=== PATIENT | male | born 1955 | race Hispanic/Latino ===

== ENCOUNTER → 2017-11-18 | Outpatient (CLI) | payer OTHER ==
[~2017-11-18] MED LIST: CARV12.511 PO; CLOP75TA32 PO; DIGO125T87 PO; FURO40TA5 PO; GEMF600T4 PO; INSLAN SQ; METF-444 PO; POTA20TA12 PO; RAMI2.5C16 PO
== END | disposition home or self-care (01) ==
LOC: SHCH 09:37
PROVIDERS: ATTEND Internal Medicine Cardiovascular Disease
DX: I65.23 Occlusion and stenosis of bilateral carotid arteries (principal)
CPT/HCPCS: 93880

== ENCOUNTER → 2019-01-13 | Outpatient (CLI) | payer OTHER ==
[~2019-01-13] MED LIST changes: +DIGO125T71 PO; -DIGO125T87 PO; -GEMF600T4 PO; +GEMF600T5 PO
== END | disposition home or self-care (01) ==
LOC: SHCH 09:12
PROVIDERS: ATTEND Internal Medicine Cardiovascular Disease
DX: I10 Essential (primary) hypertension (principal); I25.5 Ischemic cardiomyopathy; Z95.810 Presence of automatic (implantable) cardiac defibrillator
CPT/HCPCS: 93306

== ENCOUNTER 2019-05-14 10:23 | Day surgery (SDC) | payer OTHER ==
[2019-05-12 09:59] LABS: BASOPHILS % (AUTO) 0.8 % (0.0-5.0); EOSINOPHILS % (AUTO) 5.4 % (0.0-8.0); LYMPHOCYTES % (AUTO) 15.6 % (21.0-51.0); MEAN CORPUSCULAR HEMOGLOBIN 30.9 pg (27.0-33.0); MEAN CORPUSCULAR HGB CONC 33.4 g/dL (32.0-36.0); MEAN CORPUSCULAR VOLUME 92.4 fL (79-99); MONOCYTES % (AUTO) 8.2 % (3.0-13.0); NEUTROPHILS % (AUTO) 69.6 % (40.0-77.0); PLATELET COUNT (AUTO) 289 K/uL (130-400); RED BLOOD CELL COUNT(AUTO) 4.76 MIL/uL (4.50-6.20); RED CELL DISTRIBUTION WIDTH 12.8 % (11.0-15.5)
[2019-05-12 10:06] LABS: CREATININE 1.1 mg/dL (0.5-1.5); POTASSIUM 4.2 mmol/L (3.5-5.1)
[~2019-05-14] VITALS: Ht 162.6 cm; Wt 68.0 kg
[2019-05-14] VITALS (16 sets, daily range): BP systolic 115–186; BP diastolic 79–111
[~2019-05-14 10:23] MED LIST changes: +CEFAZOLIN SODIUM 1 GM VIAL IVP SCH; +DEXAMETHASONE SOD PHOSPHATE 10MG/ML 1ML VIAL ONE; +FENTANYL CITRATE PF 50 MCG/1 ML 2ML VIAL ONE; +GLYCOPYRROLATE 1 MG/5 ML SYRINGE ONE; +LACTATED RINGERS 1000ML 1,000 ML IV SCH; +LIDOCAINE PF 2% 5ML ABBOJECT ONE; +MIDAZOLAM HCL 1 MG/ML 2ML VIAL ONE; +NEOSTIGMINE 5MG/5ML SYR IV ONE; +ONDANSETRON HCL 4 MG/2 ML VIAL ONE; +PROPOFOL 10 MG/ML 20ML VIAL IV ONE; +ROCURONIUM 10MG/1ML SYR 10 MG/ML ML ONE; +ROPIVACAINE 0.5% 5MG/ML 30ML IJ ONE
[2019-05-14] MEDS ORDERED: SODIUM CHLORIDE 0.9% 1000ML 1,000 ML IV ONE (11:47)
[2019-05-14] MEDS ORDERED: CEFAZOLIN SODIUM 1 GM VIAL ONE (11:55)
[2019-05-14] MEDS ORDERED: GLYCOPYRROLATE 1 MG/5 ML SYRINGE ONE (16:38)
[2019-05-14] MEDS ORDERED: NEOSTIGMINE 5MG/5ML SYR IV ONE (16:38)
[2019-05-14] MEDS ORDERED: HYDRALAZINE HCL 20 MG/ML VIAL ONE (17:24)
--- NOTE | 2019-05-14 18:30 | NUR ---
PT LEFT VIA WHEELCHAIR IN PVT CAR, D/C INSTRUCTIONS GIVEN TO MOTHER ALONG WITH RX SCRIPT. ALSO PT AWARE TO CALL OFFICE ON FRIDAY TO MAKE APPT. IN 2 WEEKS. V/S STABLE NO COMPLICATIONS. NO CRUTCHES GIVEN TO PATIENT D/T PT. HAVING HIS OWN CRUTCHES.
== END 2019-05-14 18:30 | disposition home or self-care (01) ==
LOC: DAH 10:23
PROVIDERS: ATTEND Orthopaedic Surgery
DX: S82.841A Displaced bimalleolar fracture of right lower leg, initial encounter for closed fracture (principal); E11.9 Type 2 diabetes mellitus without complications; I10 Essential (primary) hypertension; I48.91 Unspecified atrial fibrillation; I25.10 Atherosclerotic heart disease of native coronary artery without angina pectoris; E78.5 Hyperlipidemia, unspecified; Z95.5 Presence of coronary angioplasty implant and graft; Z98.890 Other specified postprocedural states; X58.XXXA Exposure to other specified factors, initial encounter; Y93.89 Activity, other specified; Y92.89 Other specified places as the place of occurrence of the external cause; Y99.8 Other external cause status
CPT/HCPCS: 27792; 36415; 71045; 73610; 80048; 82948 ×2; 85025; 93005; A4215; A4221; A4222; A4223; A4649 ×3; A4663; A4930; A6223; C1713 ×4; C1776; J0360; J0690; J1100; J2001; J2250; J2405; J2704; J2710 ×2; J2795; J3010; J3490 ×2; J7030

== ENCOUNTER → 2022-03-29 | Outpatient (CLI) | payer OTHER ==
[~2022-03-29] MED LIST changes: -CEFAZOLIN SODIUM 1 GM VIAL IVP SCH; -DEXAMETHASONE SOD PHOSPHATE 10MG/ML 1ML VIAL ONE; -DIGO125T71 PO; -FENTANYL CITRATE PF 50 MCG/1 ML 2ML VIAL ONE; -GEMF600T5 PO; +GEMF600T89 PO; -GLYCOPYRROLATE 1 MG/5 ML SYRINGE ONE; -LACTATED RINGERS 1000ML 1,000 ML IV SCH; -LIDOCAINE PF 2% 5ML ABBOJECT ONE; -MIDAZOLAM HCL 1 MG/ML 2ML VIAL ONE; -NEOSTIGMINE 5MG/5ML SYR IV ONE; -ONDANSETRON HCL 4 MG/2 ML VIAL ONE; +POTA-193 PO; -POTA20TA12 PO; -PROPOFOL 10 MG/ML 20ML VIAL IV ONE; -RAMI2.5C16 PO; +RAMI2.5C55 PO; +REGADENOSON 0.4 MG/5 ML PF SYG IVP SCH; -ROCURONIUM 10MG/1ML SYR 10 MG/ML ML ONE; -ROPIVACAINE 0.5% 5MG/ML 30ML IJ ONE
== END | disposition home or self-care (01) ==
LOC: SHCH 07:56
PROVIDERS: ATTEND Internal Medicine Cardiovascular Disease
DX: I25.10 Atherosclerotic heart disease of native coronary artery without angina pectoris (principal); I10 Essential (primary) hypertension; E78.5 Hyperlipidemia, unspecified; Z95.5 Presence of coronary angioplasty implant and graft; Z79.02 Long term (current) use of antithrombotics/antiplatelets; Z79.899 Other long term (current) drug therapy
CPT/HCPCS: 78452; 96374; 93017; J2785; A9500 ×2

== ENCOUNTER → 2022-05-23 | Outpatient (CLI) | payer OTHER ==
[~2022-05-23] MED LIST changes: +IOHEXOL 350 MG/ML 100ML INFUS..BTL IV ONE; -REGADENOSON 0.4 MG/5 ML PF SYG IVP SCH
== END | disposition home or self-care (01) ==
LOC: RAH 09:25
PROVIDERS: ATTEND Internal Medicine Cardiovascular Disease
DX: I25.10 Atherosclerotic heart disease of native coronary artery without angina pectoris (principal); I11.9 Hypertensive heart disease without heart failure; M47.815 Spondylosis without myelopathy or radiculopathy, thoracolumbar region; Z95.5 Presence of coronary angioplasty implant and graft
CPT/HCPCS: 75574; Q9967

== ENCOUNTER → 2022-07-18 | Outpatient (CLI) | payer OTHER ==
[~2022-07-18] VITALS: Ht 165.1 cm; Wt 69.6 kg
[~2022-07-18] MED LIST changes: +ATOR40TA69 PO; -IOHEXOL 350 MG/ML 100ML INFUS..BTL IV ONE
[2022-07-18 09:43] LABS: BASOPHILS % (AUTO) 0.6 % (0.0-5.0); EOSINOPHILS % (AUTO) 1.5 % (0.0-8.0); HEMATOCRIT 46.7 % (42-54); LYMPHOCYTES % (AUTO) 15.8 % (21.0-51.0); MEAN CORPUSCULAR HEMOGLOBIN 31.6 pg (27.0-33.0); MEAN CORPUSCULAR HGB CONC 33.8 g/dL (32.0-36.0); MEAN CORPUSCULAR VOLUME 93.4 fL (79-99); MONOCYTES % (AUTO) 14.8 % (3.0-13.0); NEUTROPHILS % (AUTO) 66.8 % (40.0-77.0); PLATELET COUNT (AUTO) 152 K/uL (130-400); RED CELL DISTRIBUTION WIDTH 13.4 % (11.0-15.5); WHITE BLOOD COUNT (AUTO) 6.6 K/uL (4.8-10.8)
[2022-07-18 09:45] VITALS: BP 145/82
[2022-07-18 09:47] LABS: APPEARANCE,URINE CLEAR (CLEAR); BILIRUBIN,URINE NEGATIVE (NEGATIVE); COLOR,URINE LIGHT-YELLOW (YELLOW); GLUCOSE, URINE (UA) >=1000 mg/dL (NEGATIVE); KETONES,URINE 5 mg/dL (NEGATIVE); LEUKOCYTE ESTERASE ,URINE NEGATIVE Leu/uL (NEGATIVE); NITRATE,URINE NEGATIVE (NEGATIVE); OCCULT BLOOD,URINE NEGATIVE (NEGATIVE); PH,URINE 6.5 (5.0-8.0); PROTEIN,URINE NEGATIVE (NEGATIVE)
[2022-07-18 09:52] LABS: CREATININE 0.9 mg/dL (0.5-1.5); POTASSIUM 4.6 mmol/L (3.5-5.1)
[2022-07-18 10:11] LABS: WBC,URINE 0-1 /HPF (0-1)
[2022-07-18 10:30] LABS: B-TYPE NATRIURETIC PEPTIDE 16 pg/mL (0-100)
== END | disposition home or self-care (01) ==
LOC: DAH 10:00 → EDSTATUS 07-22 09:30
PROVIDERS: ATTEND Internal Medicine Cardiovascular Disease
DX: Z01.818 Encounter for other preprocedural examination (principal); I25.10 Atherosclerotic heart disease of native coronary artery without angina pectoris; I70.0 Atherosclerosis of aorta; Z95.0 Presence of cardiac pacemaker
CPT/HCPCS: 36415; 71045; 80048; 81001; 83880; 85025; 93005

== ENCOUNTER 2022-08-09 05:52 | Day surgery (SDC) | payer OTHER ==
[2022-08-07 13:06] LABS: BASOPHILS % (AUTO) 0.8 % (0.0-5.0); EOSINOPHILS % (AUTO) 1.2 % (0.0-8.0); HEMATOCRIT 48.8 % (42-54); LYMPHOCYTES % (AUTO) 16.8 % (21.0-51.0); MEAN CORPUSCULAR HEMOGLOBIN 31.3 pg (27.0-33.0); MEAN CORPUSCULAR HGB CONC 33.8 g/dL (32.0-36.0); MEAN CORPUSCULAR VOLUME 92.6 fL (79-99); MONOCYTES % (AUTO) 12.1 % (3.0-13.0); NEUTROPHILS % (AUTO) 68.8 % (40.0-77.0); PLATELET COUNT (AUTO) 152 K/uL (130-400); RED BLOOD CELL COUNT(AUTO) 5.27 MIL/uL (4.50-6.20); RED CELL DISTRIBUTION WIDTH 13.6 % (11.0-15.5); WHITE BLOOD COUNT (AUTO) 6.6 K/uL (4.8-10.8)
[2022-08-07 13:11] LABS: APPEARANCE,URINE CLEAR (CLEAR); BILIRUBIN,URINE NEGATIVE (NEGATIVE); COLOR,URINE YELLOW (YELLOW); GLUCOSE, URINE (UA) >=1000 mg/dL (NEGATIVE); KETONES,URINE NEGATIVE (NEGATIVE); LEUKOCYTE ESTERASE ,URINE NEGATIVE Leu/uL (NEGATIVE); NITRATE,URINE NEGATIVE (NEGATIVE); OCCULT BLOOD,URINE NEGATIVE (NEGATIVE); PROTEIN,URINE 10 mg/dL (NEGATIVE); UROBILINOGEN,URINE 0.2 mg/dL (0.2-1.0)
[2022-08-07 13:14] LABS: INR 0.97 (0.85-1.15); PROTHROMBIN TIME 10.6 SEC (9.6-11.6)
[2022-08-07 13:15] LABS: PARTIAL THROMBOPLASTIN TIME 27.3 SEC (26.3-35.5)
[2022-08-07 13:19] LABS: POTASSIUM 4.2 mmol/L (3.5-5.1)
[2022-08-07 13:21] LABS: RBC,URINE None Seen /HPF (0-1)
[2022-08-07 13:22] LABS: BACTERIA,URINE None Seen /HPF (None Seen); SQUAMOUS EPITHELIAL CELL,UR Rare /HPF (0-2); WBC,URINE None Seen /HPF (0-1)
[2022-08-07 13:26] LABS: B-TYPE NATRIURETIC PEPTIDE 27 pg/mL (0-100)
[2022-08-07 13:30] VITALS: BP 165/93
[~2022-08-09] VITALS: Ht 165.1 cm; Wt 68.1 kg
[2022-08-09] VITALS (10 sets, daily range): BP systolic 137–164; BP diastolic 67–87
[~2022-08-09 05:52] MED LIST changes: -GEMF600T89 PO; -INSLAN SQ; -METF-444 PO
[2022-08-09] MEDS ORDERED: 0.9%NACL 1000ML 1,000 ML IV ONE (06:15)
[2022-08-09] MEDS ORDERED: LIDOCAINE HCL 400MG/20ML VIAL ONE (07:10)
[2022-08-09] MEDS ORDERED: SODIUM BICARB 50MEQ 50ML VIAL 50 ML ONE (07:10)
[2022-08-09] MEDS ORDERED: HEPARIN 10,000 UNIT/10ML (1,000 UNIT/ML) VIAL ONE (07:11)
[2022-08-09] MEDS ORDERED: IOHEXOL-350 50ML VIAL IV ONE (07:11)
[2022-08-09] MEDS ORDERED: MEPERIDINE-PF 25 MG/ML SYG ONE ×2 (07:11→07:36)
[2022-08-09] MEDS ORDERED: MIDAZOLAM HCL 1 MG/ML 2ML VIAL ONE ×2 (07:11→07:36)
[2022-08-09] MEDS ORDERED: IOHEXOL 350 MG/ML 100ML INFUS..BTL IV ONE (07:11)
[2022-08-09] MEDS ORDERED: NITROGLYCERIN 50MG VIAL ONE (07:12)
[2022-08-09] MEDS ORDERED: NICARDIPINE 25MG INJ IV ONE (07:24)
[2022-08-09] MEDS ORDERED: CLOPIDOGREL 75MG TAB ONE (08:26)
[2022-08-09] MEDS ORDERED: ASPIRIN 81MG CHEW TAB ONE (08:26)
[2022-08-09] MEDS ORDERED: 0.9%NACL 1000ML 1,000 ML IV SCH (08:30)
[2022-08-09] MEDS ORDERED: ONDANSETRON 4MG INJ IVP PRN (08:30)
== END 2022-08-09 12:40 | disposition home or self-care (01) ==
LOC: DAH 05:52
PROVIDERS: ATTEND Internal Medicine Cardiovascular Disease
DX: I25.119 Atherosclerotic heart disease of native coronary artery with unspecified angina pectoris (principal); I25.5 Ischemic cardiomyopathy; I49.3 Ventricular premature depolarization; I11.0 Hypertensive heart disease with heart failure; I50.42 Chronic combined systolic (congestive) and diastolic (congestive) heart failure; I25.2 Old myocardial infarction; E78.5 Hyperlipidemia, unspecified; F17.200 Nicotine dependence, unspecified, uncomplicated; Z98.890 Other specified postprocedural states; Z79.01 Long term (current) use of anticoagulants; Z79.899 Other long term (current) drug therapy; Z90.49 Acquired absence of other specified parts of digestive tract; Z88.6 Allergy status to analgesic agent; Z88.8 Allergy status to other drugs, medicaments and biological substances
CPT/HCPCS: 80048; 83880; 85025; 85610; 85730; 81001; 36415; 93005; 82948 ×2; 93458; C9600; C1769 ×2; C1887; A4649; C1894; C1874; C1725; J3490 ×4; J7030; J1644 ×2; J2250 ×2; J2175 ×2; Q9967; A4215; A4222; A4221; A4663; A4216; A4606; Q9965 ×2; A4223 ×3; 96360; 96361; 99156; 99157